=== PATIENT | female | born 1950 | race African-American/Black ===

== ENCOUNTER 2021-01-26 17:03 | Inpatient (IN) | payer MEDICARE ==
[2021-01-26] MEDS ORDERED: Acetaminophen 325 MG TAB PO PRN (17:41)
[2021-01-26] MEDS ORDERED: Sodium Chloride 0.9% 1,000 ML IV SCH (17:45)
[2021-01-26] MEDS ORDERED: Ondansetron ODT 4 MG TAB PO PRN (18:06)
[2021-01-26] MEDS ORDERED: Lorazepam 1 MG TAB PO PRN (18:06)
[2021-01-26] MEDS ORDERED: Lorazepam 2 MG/ML VIAL IM PRN (18:06)
[2021-01-26] MEDS ORDERED: Multivitamins, Adult 10 ML, Folic Acid 1 MG, Thiamine HCl 100 MG in Dextrose 5 %-0.45 %... IV SCH (18:15)
[2021-01-26] MEDS ORDERED: Electrolyte Replacement Protocol 1 EACH FS SCH (18:15)
[2021-01-26] MEDS ORDERED: Dextrose 5 %-0.45 % NaCl 1,000 ML IV SCH (18:15)
[2021-01-26 18:37] VITALS: BMI 14.4
[2021-01-26 19:42] LABS: Hemoglobin 8.9 g/dL (12.0-15.5)
[2021-01-26] MEDS ORDERED: Multivit, Therapeutic 1 TAB PO SCH (20:00)
[2021-01-26] MEDS ORDERED: Folic Acid 1 MG TAB PO SCH (20:00)
[2021-01-26] MEDS ORDERED: Thiamine HCl 200 MG/2 ML VIAL SLOW IVP SCH (20:00)
[2021-01-26] MEDS: Lorazepam 1 MG TAB PO SCH (20:07)
[2021-01-26 20:12] LABS: SARS-CoV-2 NAA Rapid Test Not Detected (NotDetected)
[2021-01-27] MEDS ORDERED: Sodium Chloride 0.45% 1,000 ML IV SCH (00:30)
[2021-01-27 04:24] LABS: ALT (SGPT) 12 U/L (8-55); AST (SGOT) 21 U/L (5-34); Albumin 2.7 g/dL (3.4-4.8); Alkaline Phosphatase 105 U/L (40-110); BUN (Urea Nitrogen) 111 mg/dL (9.8-20.1); Bilirubin, Total 0.6 mg/dL (0.2-1.2); Calc. Creatinine Clearance 8 mL/min (70-130); Calcium 7.6 mg/dL (7.8-10.44); Chloride 113 mmol/L (98-107); Globulin 3.4 g/dL (2.4-3.5); Glucose 201 mg/dL (80-115); Magnesium 1.6 mg/dL (1.6-2.6); Potassium 3.5 mmol/L (3.5-5.1); Protein, Total 6.1 g/dL (5.8-8.1); Sodium 134 mmol/L (136-145)
[2021-01-27 04:28] LABS: Carbon Dioxide Less than 8 mmol/L (23-31)
[2021-01-27 04:41] LABS: Phosphorus 10.3 mg/dL (2.3-4.7)
[2021-01-27] MEDS: Lorazepam 1 MG TAB PO SCH ×4 (04:45→17:18)
[2021-01-27] MEDS: Sodium Bicarbonate 75 MEQ in Dextrose 5% in Water 500 ML IV SCH ×4 (05:48→21:44)
[2021-01-27] MEDS: Multivit, Therapeutic 1 TAB PO SCH (08:32)
[2021-01-27] MEDS: Folic Acid 1 MG TAB PO SCH (08:32)
[2021-01-27] MEDS: Pantoprazole 40 MG VIAL IVP SCH (08:32)
[2021-01-27] MEDS: Thiamine HCl 200 MG/2 ML VIAL SLOW IVP SCH (13:34)
[2021-01-27 15:34] LABS: #Monocytes 0.3 10x3/uL (0.0-1.1); #Neutrophils 3.1 10x3/uL (1.5-8.4); %Basophils 0.3 % (0.0-2.0); %Eosinophils 0.5 % (0.0-6.0); %Lymphocytes 7.3 % (18.0-47.0); %Monocytes 7.9 % (0.0-10.0); %Neutrophils 83.5 % (40.0-75.0); Hemoglobin 8.5 g/dL (12.0-15.5); Mean Corpuscular HGB CONC 34.6 g/dL (32.0-36.0); Mean Corpuscular Hemoglobin 31.1 pg (27.0-33.0); Mean Corpuscular Volume 90.1 fl (81.6-98.3); Mean Platelet Volume 9.8 fl (7.4-10.4); Platelet Count 74 10x3/uL (150-450); Red Blood Cell (RBC) Count 2.73 10x6/uL (3.90-5.03); White Blood Cell (WBC) Count 3.7 10x3/uL (3.5-10.5)
[2021-01-27] MEDS ORDERED: Lorazepam 1 MG TAB PO PRN (18:06)
[2021-01-28] MEDS: Lorazepam 1 MG TAB PO SCH ×3 (00:13→12:46)
[2021-01-28] MEDS: Sodium Bicarbonate 75 MEQ in Dextrose 5% in Water 500 ML IV SCH ×4 (02:21→18:00)
[2021-01-28 05:53] LABS: Hemoglobin 9.9 g/dL (12.0-15.5); Mean Corpuscular HGB CONC 35.4 g/dL (32.0-36.0); Mean Corpuscular Hemoglobin 31.4 pg (27.0-33.0); Mean Corpuscular Volume 88.9 fl (81.6-98.3); Mean Platelet Volume 10.7 fl (7.4-10.4); Platelet Count 68 10x3/uL (150-450); RBC Distribution Width 20.9 % (11.5-14.5); Red Blood Cell (RBC) Count 3.15 10x6/uL (3.90-5.03); White Blood Cell (WBC) Count 4.3 10x3/uL (3.5-10.5)
[2021-01-28 06:17] LABS: Albumin 2.7 g/dL (3.4-4.8); Anion Gap 19 mmol/L (10-20); BUN (Urea Nitrogen) 100 mg/dL (9.8-20.1); BUN/Creatinine Ratio 26.53; Calc. Creatinine Clearance 9 mL/min (70-130); Calcium 7.3 mg/dL (7.8-10.44); Carbon Dioxide 20 mmol/L (23-31); Chloride 103 mmol/L (98-107); Glucose 168 mg/dL (80-115); Phosphorus 6.6 mg/dL (2.3-4.7); Potassium 2.8 mmol/L (3.5-5.1); Sodium 139 mmol/L (136-145)
[2021-01-28] MEDS ORDERED: Potassium Chloride 40 MEQ in Premix Bag 1 BAG IVPB SCH (07:30)
[2021-01-28] MEDS: Potassium Chloride 20 MEQ in Premix Bag 1 BAG IVPB SCH ×2 (08:47→08:53)
[2021-01-28] MEDS: Multivit, Therapeutic 1 TAB PO SCH (08:53)
[2021-01-28] MEDS: Folic Acid 1 MG TAB PO SCH (08:53)
[2021-01-28] MEDS: Pantoprazole 40 MG VIAL IVP SCH (08:53)
[2021-01-28] MEDS ORDERED: cloNIDine 0.1mg/24 Hour PATCH TD SCH (09:00)
[2021-01-28 09:11] LABS: Magnesium 1.3 mg/dL (1.6-2.6)
[2021-01-28] MEDS ORDERED: Magnesium Sulfate 2 GM in Sodium Chloride 0.9% 100 ML IVPB SCH (09:30)
[2021-01-28] MEDS ORDERED: Magnesium 2 GM/50 ML 2 GM in Premix Bag 1 BAG IVPB SCH (09:30)
[2021-01-28] MEDS: Thiamine HCl 200 MG/2 ML VIAL SLOW IVP SCH (14:59)
[2021-01-28] MEDS: Lorazepam 0.5 MG TAB PO SCH (18:01)
[2021-01-28] MEDS ORDERED: Lorazepam 1 MG TAB PO PRN (18:06)
[2021-01-29] MEDS: Sodium Bicarbonate 75 MEQ in Dextrose 5% in Water 500 ML IV SCH ×2 (00:50→04:53)
[2021-01-29] MEDS: Lorazepam 0.5 MG TAB PO SCH ×4 (00:54→12:54)
[2021-01-29] MEDS: WATER IV SCH ×9 (04:50→16:08)
[2021-01-29] MEDS: DEXTROSE IV SCH ×9 (04:50→16:08)
[2021-01-29] MEDS: SODIUM BICARBONATE IV SCH ×9 (04:50→16:08)
[2021-01-29] MEDS: ADMIXTURE FEE IV SCH ×9 (04:50→16:08)
[2021-01-29 05:46] LABS: Hemoglobin 9.1 g/dL (12.0-15.5); Mean Corpuscular Hemoglobin 31.4 pg (27.0-33.0); Mean Corpuscular Volume 89.7 fl (81.6-98.3); Mean Platelet Volume 11.2 fl (7.4-10.4); RBC Distribution Width 20.2 % (11.5-14.5); White Blood Cell (WBC) Count 3.7 10x3/uL (3.5-10.5)
[2021-01-29 05:47] LABS: Platelet Count 64 10x3/uL (150-450)
[2021-01-29 06:17] LABS: Albumin 2.3 g/dL (3.4-4.8); Anion Gap 17 mmol/L (10-20); BUN (Urea Nitrogen) 89 mg/dL (9.8-20.1); BUN/Creatinine Ratio 28.25; Calc. Creatinine Clearance 11 mL/min (70-130); Calcium 6.9 mg/dL (7.8-10.44); Carbon Dioxide 29 mmol/L (23-31); Chloride 95 mmol/L (98-107); Glucose 132 mg/dL (80-115); Phosphorus 4.8 mg/dL (2.3-4.7); Potassium 2.3 mmol/L (3.5-5.1); Sodium 139 mmol/L (136-145)
[2021-01-29] MEDS ORDERED: Magnesium 2 GM/50 ML 2 GM in Premix Bag 1 BAG IVPB SCH (10:00)
[2021-01-29] MEDS: Multivit, Therapeutic 1 TAB PO SCH (10:34)
[2021-01-29] MEDS: Folic Acid 1 MG TAB PO SCH (10:34)
[2021-01-29] MEDS: Pantoprazole 40 MG VIAL IVP SCH (10:34)
[2021-01-29] MEDS: Potassium Chloride 20 MEQ in Premix Bag 1 BAG IVPB SCH ×4 (10:35→18:02)
[2021-01-29] MEDS: Thiamine HCl 200 MG/2 ML VIAL SLOW IVP SCH (15:18)
[2021-01-29 15:40] LABS: Anion Gap 16 mmol/L (10-20); BUN (Urea Nitrogen) 80 mg/dL (9.8-20.1); Calc. Creatinine Clearance 12 mL/min (70-130); Calcium 6.7 mg/dL (7.8-10.44); Carbon Dioxide 33 mmol/L (23-31); Chloride 91 mmol/L (98-107); Glucose 149 mg/dL (80-115); Sodium 138 mmol/L (136-145)
[2021-01-29] MEDS: Sodium Bicarbonate 75 MEQ, Admixture Fee 1 EACH in Dextrose 5% in Water 500 ML IV SCH ×2 (15:40→22:17)
[2021-01-29] MEDS ORDERED: Metoprolol Tartrate 5 MG/5 ML VIAL IVP SCH (15:45)
[2021-01-29 16:02] LABS: Potassium 2.4 mmol/L (3.5-5.1)
[2021-01-29] MEDS ORDERED: Thiamine 100 MG TAB PO SCH (21:00)
[2021-01-29] MEDS ORDERED: Metoprolol Tartrate 5 MG/5 ML VIAL IVP PRN (23:12)
[2021-01-29] MEDS ORDERED: Electrolyte Replacement Protocol 1 EACH FS SCH (23:15)
[2021-01-29 23:48] LABS: Anion Gap 14 mmol/L (10-20); BUN (Urea Nitrogen) 75 mg/dL (9.8-20.1); Calc. Creatinine Clearance 12 mL/min (70-130); Calcium 6.7 mg/dL (7.8-10.44); Carbon Dioxide 36 mmol/L (23-31); Chloride 91 mmol/L (98-107); Glucose 151 mg/dL (80-115); Potassium 3.3 mmol/L (3.5-5.1); Sodium 138 mmol/L (136-145)
[2021-01-30] MEDS: Sodium Bicarbonate 75 MEQ, Admixture Fee 1 EACH in Dextrose 5% in Water 500 ML IV SCH ×5 (04:29→18:47)
[2021-01-30] MEDS ORDERED: metroNIDAZOLE 250 MG in Admixture Fee 2 EACH IVPB SCH (06:00)
[2021-01-30 09:13] LABS: Albumin 1.9 g/dL (3.4-4.8); BUN (Urea Nitrogen) 69 mg/dL (9.8-20.1); BUN/Creatinine Ratio 26.34; Calc. Creatinine Clearance 13 mL/min (70-130); Calcium 6.3 mg/dL (7.8-10.44); Glucose 124 mg/dL (80-115); Phosphorus 3.9 mg/dL (2.3-4.7)
[2021-01-30 09:20] LABS: Anion Gap 17 mmol/L (10-20); Carbon Dioxide 36 mmol/L (23-31); Chloride 88 mmol/L (98-107); Sodium 138 mmol/L (136-145)
[2021-01-30] MEDS: Potassium Chloride 20 MEQ in Premix Bag 1 BAG IVPB SCH ×4 (09:20→11:06)
[2021-01-30 09:30] LABS: Potassium 2.8 mmol/L (3.5-5.1)
[2021-01-30] MEDS: Vancomycin 25 MG/ML Oral SOLN PO SCH ×3 (09:30→21:53)
[2021-01-30] MEDS: Pantoprazole 40 MG VIAL IVP SCH (09:32)
[2021-01-30] MEDS: Folic Acid 1 MG TAB PO SCH (09:32)
[2021-01-30] MEDS: Multivit, Therapeutic 1 TAB PO SCH (09:32)
[2021-01-30] MEDS: Thiamine 100 MG TAB PO SCH (14:40)
[2021-01-30] MEDS ORDERED: Polyvinyl Alcohol 1.4%/Povidone 0.6% Opth Drops EA EYE PRN (16:16)
[2021-01-30 17:20] LABS: Phosphorus 3.9 mg/dL (2.3-4.7)
[2021-01-30 17:22] LABS: BUN (Urea Nitrogen) 67 mg/dL (9.8-20.1); Calc. Creatinine Clearance 13 mL/min (70-130); Calcium 6.6 mg/dL (7.8-10.44); Glucose 105 mg/dL (80-115); Magnesium 1.8 mg/dL (1.6-2.6)
[2021-01-30 17:29] LABS: Anion Gap 18 mmol/L (10-20); Carbon Dioxide 36 mmol/L (23-31); Chloride 89 mmol/L (98-107); Potassium 3.6 mmol/L (3.5-5.1); Sodium 139 mmol/L (136-145)
[2021-01-30] MEDS: Carvedilol 6.25 MG TAB PO SCH (18:32)
[2021-01-31] MEDS: Vancomycin 25 MG/ML Oral SOLN PO SCH ×4 (03:53→22:00)
[2021-01-31] MEDS: Sodium Bicarbonate 75 MEQ, Admixture Fee 1 EACH in Dextrose 5% in Water 500 ML IV SCH ×2 (03:54→10:38)
[2021-01-31] MEDS: Carvedilol 6.25 MG TAB PO SCH ×2 (09:27→17:24)
[2021-01-31] MEDS: levETIRAcetam 500 MG TAB PO SCH (09:28)
[2021-01-31] MEDS: Pantoprazole 40 MG VIAL IVP SCH (09:28)
[2021-01-31] MEDS: Ergocalciferol 1.25 MG(50,000 UNITS) CAP PO SCH (09:28)
[2021-01-31] MEDS: Folic Acid 1 MG TAB PO SCH (09:28)
[2021-01-31] MEDS: Multivit, Therapeutic 1 TAB PO SCH (09:28)
[2021-01-31] MEDS: Sodium Chloride 0.9% 1,000 ML IV SCH ×2 (09:44→15:54)
[2021-01-31] MEDS: Thiamine 100 MG TAB PO SCH (15:01)
[2021-01-31 16:30] LABS: Hemoglobin 5.5 g/dL (12.0-15.5); Mean Corpuscular HGB CONC 31.8 g/dL (32.0-36.0); Mean Corpuscular Hemoglobin 31.1 pg (27.0-33.0); Mean Corpuscular Volume 97.7 fl (81.6-98.3); Platelet Count 45 10x3/uL (150-450); RBC Distribution Width 19.1 % (11.5-14.5); Red Blood Cell (RBC) Count 1.77 10x6/uL (3.90-5.03)
[2021-01-31 16:31] LABS: Mean Platelet Volume 10.2 fl (7.4-10.4)
[2021-01-31 16:32] LABS: Albumin 1.9 g/dL (3.4-4.8); BUN (Urea Nitrogen) 59 mg/dL (9.8-20.1); BUN/Creatinine Ratio 22.26; Calc. Creatinine Clearance 13 mL/min (70-130); Calcium 6.8 mg/dL (7.8-10.44); Glucose 190 mg/dL (80-115); Phosphorus 4.1 mg/dL (2.3-4.7)
[2021-01-31 16:34] LABS: Iron 29 ug/dL (50-170); Iron Binding Capacity, Total 74 mcg/dL (265-497)
[2021-01-31 16:39] LABS: Anion Gap 16 mmol/L (10-20); Carbon Dioxide 36 mmol/L (23-31); Chloride 88 mmol/L (98-107); Potassium 3.3 mmol/L (3.5-5.1); Sodium 137 mmol/L (136-145)
[2021-01-31 18:08] LABS: Hemoglobin 5.4 g/dL (12.0-15.5)
[2021-01-31] MEDS ORDERED: Potassium Chloride 20 MEQ TAB PO SCH (20:00)
[2021-01-31] MEDS ORDERED: EPOETIN ALFA-EPBX (ESRD) 10,000 UNIT/ML VIAL SC SCH (21:00)
[2021-01-31] MEDS: Ferrous Sulfate 325 MG TAB PO SCH (21:53)
[2021-02-01] MEDS: Vancomycin 25 MG/ML Oral SOLN PO SCH ×4 (03:58→22:05)
[2021-02-01] MEDS: Sodium Chloride 0.9% 1,000 ML IV SCH (06:01)
[2021-02-01 07:21] LABS: #Eosinphils 0.1 10x3/uL (0.0-0.5); #Monocytes 0.4 10x3/uL (0.0-1.1); #Neutrophils 2.4 10x3/uL (1.5-8.4); %Basophils 0.3 % (0.0-2.0); %Eosinophils 2.7 % (0.0-6.0); %Lymphocytes 13.2 % (18.0-47.0); %Monocytes 10.5 % (0.0-10.0); %Neutrophils 72.7 % (40.0-75.0); Hemoglobin 9.4 g/dL (12.0-15.5); Mean Corpuscular HGB CONC 33.5 g/dL (32.0-36.0); Mean Corpuscular Hemoglobin 30.2 pg (27.0-33.0); Mean Corpuscular Volume 90.4 fl (81.6-98.3); Mean Platelet Volume 10.3 fl (7.4-10.4); Platelet Count 44 10x3/uL (150-450); RBC Distribution Width 18.2 % (11.5-14.5); Red Blood Cell (RBC) Count 3.11 10x6/uL (3.90-5.03); White Blood Cell (WBC) Count 3.3 10x3/uL (3.5-10.5)
[2021-02-01 07:46] LABS: Albumin 2.1 g/dL (3.4-4.8); Anion Gap 13 mmol/L (10-20); BUN (Urea Nitrogen) 55 mg/dL (9.8-20.1); Calc. Creatinine Clearance 13 mL/min (70-130); Calcium 7.4 mg/dL (7.8-10.44); Carbon Dioxide 36 mmol/L (23-31); Chloride 93 mmol/L (98-107); Glucose 85 mg/dL (80-115); Phosphorus 4.5 mg/dL (2.3-4.7); Potassium 3.9 mmol/L (3.5-5.1); Sodium 138 mmol/L (136-145)
[2021-02-01] MEDS: Ergocalciferol 1.25 MG(50,000 UNITS) CAP PO SCH (08:55)
[2021-02-01] MEDS: Ferrous Sulfate 325 MG TAB PO SCH ×2 (08:55→22:05)
[2021-02-01] MEDS: Carvedilol 6.25 MG TAB PO SCH ×2 (08:55→17:49)
[2021-02-01] MEDS: Multivit, Therapeutic 1 TAB PO SCH (08:55)
[2021-02-01] MEDS: Folic Acid 1 MG TAB PO SCH (08:55)
[2021-02-01] MEDS: levETIRAcetam 500 MG TAB PO SCH (08:55)
[2021-02-01] MEDS: Pantoprazole 40 MG VIAL IVP SCH (08:56)
[2021-02-01] MEDS: Potassium Chloride 20 MEQ TAB PO SCH ×2 (12:26→16:18)
[2021-02-01 12:46] LABS: Magnesium 1.6 mg/dL (1.6-2.6)
[2021-02-01] MEDS: Thiamine 100 MG TAB PO SCH (16:18)
[2021-02-02] MEDS: Vancomycin 25 MG/ML Oral SOLN PO SCH ×4 (02:58→20:31)
[2021-02-02] MEDS: Carvedilol 6.25 MG TAB PO SCH ×2 (09:05→19:11)
[2021-02-02] MEDS: Pantoprazole 40 MG VIAL IVP SCH (09:05)
[2021-02-02] MEDS: Ferrous Sulfate 325 MG TAB PO SCH ×2 (09:05→20:31)
[2021-02-02] MEDS: NIFEdipine XL 60 MG TAB PO SCH (09:05)
[2021-02-02] MEDS: Folic Acid 1 MG TAB PO SCH (09:05)
[2021-02-02] MEDS: Ergocalciferol 1.25 MG(50,000 UNITS) CAP PO SCH (09:05)
[2021-02-02] MEDS: Multivit, Therapeutic 1 TAB PO SCH (09:05)
[2021-02-02] MEDS: levETIRAcetam 500 MG TAB PO SCH (09:05)
[2021-02-02 10:29] LABS: Hemoglobin 9.8 g/dL (12.0-15.5); Mean Corpuscular HGB CONC 31.7 g/dL (32.0-36.0); Mean Corpuscular Hemoglobin 30.9 pg (27.0-33.0); Mean Corpuscular Volume 97.5 fl (81.6-98.3); Mean Platelet Volume 10.8 fl (7.4-10.4); Platelet Count 57 10x3/uL (150-450); RBC Distribution Width 18.1 % (11.5-14.5); Red Blood Cell (RBC) Count 3.17 10x6/uL (3.90-5.03); White Blood Cell (WBC) Count 3.3 10x3/uL (3.5-10.5)
[2021-02-02 10:35] LABS: Albumin 2.2 g/dL (3.4-4.8); Anion Gap 14 mmol/L (10-20); BUN (Urea Nitrogen) 51 mg/dL (9.8-20.1); BUN/Creatinine Ratio 17.47; Calc. Creatinine Clearance 12 mL/min (70-130); Calcium 8.2 mg/dL (7.8-10.44); Carbon Dioxide 26 mmol/L (23-31); Chloride 102 mmol/L (98-107); Glucose 143 mg/dL (80-115); Phosphorus 4.2 mg/dL (2.3-4.7); Potassium 5.1 mmol/L (3.5-5.1); Sodium 137 mmol/L (136-145)
[2021-02-02] MEDS ORDERED: Megestrol Acetate 400 MG/10 ML UDCUP PO SCH (12:15)
[2021-02-02] MEDS: Thiamine 100 MG TAB PO SCH (13:32)
[2021-02-03] MEDS: Vancomycin 25 MG/ML Oral SOLN PO SCH ×5 (03:28→22:59)
[2021-02-03 07:04] LABS: Anion Gap 14 mmol/L (10-20); BUN (Urea Nitrogen) 49 mg/dL (9.8-20.1); Calc. Creatinine Clearance 12 mL/min (70-130); Calcium 8.1 mg/dL (7.8-10.44); Carbon Dioxide 24 mmol/L (23-31); Chloride 108 mmol/L (98-107); Glucose 123 mg/dL (80-115); Potassium 5.6 mmol/L (3.5-5.1); Sodium 140 mmol/L (136-145)
[2021-02-03] MEDS: Carvedilol 6.25 MG TAB PO SCH ×3 (11:12→15:54)
[2021-02-03] MEDS: levETIRAcetam 500 MG TAB PO SCH (11:12)
[2021-02-03] MEDS: Multivit, Therapeutic 1 TAB PO SCH (11:12)
[2021-02-03] MEDS: Ferrous Sulfate 325 MG TAB PO SCH ×2 (11:13→22:57)
[2021-02-03] MEDS: NIFEdipine XL 60 MG TAB PO SCH (11:13)
[2021-02-03] MEDS: Ergocalciferol 1.25 MG(50,000 UNITS) CAP PO SCH (11:13)
[2021-02-03] MEDS: Folic Acid 1 MG TAB PO SCH (11:13)
[2021-02-03] MEDS: Megestrol Acetate 400 MG/10 ML UDCUP PO SCH (11:13)
[2021-02-03] MEDS: Pantoprazole 40 MG VIAL IVP SCH (11:14)
[2021-02-03] MEDS: NIFEdipine XL 30 MG TAB PO SCH (11:35)
[2021-02-03] MEDS: Thiamine 100 MG TAB PO SCH (12:20)
[2021-02-03 14:59] LABS: SARS-CoV-2 PCR by NAA DETECTED (NotDetected)
[2021-02-03 16:58] LABS: SARS-CoV-2 IgG Spike Ab Interp Reactive (NonReactive); SARS-CoV-2 IgG Spike Conc/Indx 439.1 AU/mL (0.00-50.0)
[2021-02-03] MEDS ORDERED: Dexamethasone 10 MG/ML VIAL SLOW IVP SCH (21:00)
[2021-02-04] MEDS: Vancomycin 25 MG/ML Oral SOLN PO SCH ×4 (04:32→23:23)
[2021-02-04] MEDS: Megestrol Acetate 400 MG/10 ML UDCUP PO SCH (07:47)
[2021-02-04] MEDS: Multivit, Therapeutic 1 TAB PO SCH (07:48)
[2021-02-04] MEDS: Carvedilol 6.25 MG TAB PO SCH ×2 (07:48→17:04)
[2021-02-04] MEDS: Ergocalciferol 1.25 MG(50,000 UNITS) CAP PO SCH (07:48)
[2021-02-04] MEDS: Pantoprazole 40 MG VIAL IVP SCH (07:48)
[2021-02-04] MEDS: Folic Acid 1 MG TAB PO SCH (07:48)
[2021-02-04] MEDS: NIFEdipine XL 60 MG TAB PO SCH (07:48)
[2021-02-04 07:49] LABS: Albumin 2.3 g/dL (3.4-4.8); Anion Gap 14 mmol/L (10-20); BUN (Urea Nitrogen) 56 mg/dL (9.8-20.1); BUN/Creatinine Ratio 16.82; Calc. Creatinine Clearance 10 mL/min (70-130); Carbon Dioxide 22 mmol/L (23-31); Chloride 109 mmol/L (98-107); Glucose 180 mg/dL (80-115); Phosphorus 2.5 mg/dL (2.3-4.7); Potassium 6.1 mmol/L (3.5-5.1); Sodium 139 mmol/L (136-145)
[2021-02-04] MEDS: levETIRAcetam 500 MG TAB PO SCH (07:49)
[2021-02-04] MEDS: Ferrous Sulfate 325 MG TAB PO SCH ×2 (07:49→20:33)
[2021-02-04] MEDS: Aspirin 81 mg Enteric Coated Tablet PO SCH (07:49)
[2021-02-04] MEDS: Zinc Sulfate 220 MG CAP PO SCH (07:49)
[2021-02-04] MEDS ORDERED: LOKELMA 10 GM PACKET PO SCH (08:45)
[2021-02-04] MEDS ORDERED: Calcium Gluconate 4.6 MEQ in Sodium Chloride 0.9% 100 ML IVPB SCH (08:50)
[2021-02-04] MEDS ORDERED: Albuterol Sulfate 2.5 mg/3 ml Neb NEB SCH (09:00)
[2021-02-04] MEDS ORDERED: NIFEdipine XL 90 MG TAB PO SCH (09:00)
[2021-02-04] MEDS ORDERED: Insulin Regular 300 UNITS/3 ML VIAL IVP SCH (09:00)
[2021-02-04] MEDS ORDERED: Sodium Bicarbonate Tab 325 MG TAB PO SCH (09:00)
[2021-02-04] MEDS ORDERED: Dextrose 50% Abboject 50 ML SYRINGE SLOW IVP SCH (09:00)
[2021-02-04] MEDS ORDERED: Calcium Gluc 4.6 MEQ/10 ML (100 MG/ML) ONE (11:31)
[2021-02-04] MEDS: Thiamine 100 MG TAB PO SCH (11:47)
[2021-02-04] MEDS: Dexamethasone 20 MG/5 ML VIAL SLOW IVP SCH ×2 (11:47→20:33)
[2021-02-04 16:16] LABS: Anion Gap 14 mmol/L (10-20); BUN (Urea Nitrogen) 57 mg/dL (9.8-20.1); Calc. Creatinine Clearance 10 mL/min (70-130); Calcium 8.3 mg/dL (7.8-10.44); Carbon Dioxide 22 mmol/L (23-31); Chloride 106 mmol/L (98-107); Glucose 202 mg/dL (80-115); Potassium 5.4 mmol/L (3.5-5.1); Sodium 137 mmol/L (136-145)
[2021-02-04] MEDS: Sodium Bicarbonate Tab 325 MG TAB PO SCH ×2 (17:03→20:33)
[2021-02-04] MEDS: NIFEdipine XL 30 MG TAB PO SCH (20:11)
[2021-02-05] MEDS: Lorazepam 0.5 MG TAB PO PRN (01:56)
[2021-02-05] MEDS ORDERED: Nicotine 21 MG PATCH TD SCH (02:30)
[2021-02-05] MEDS: Vancomycin 25 MG/ML Oral SOLN PO SCH ×4 (05:08→21:51)
[2021-02-05] MEDS: Carvedilol 6.25 MG TAB PO SCH (06:48)
[2021-02-05 07:22] LABS: Albumin 2.2 g/dL (3.4-4.8); Anion Gap 14 mmol/L (10-20); BUN (Urea Nitrogen) 62 mg/dL (9.8-20.1); Calc. Creatinine Clearance 10 mL/min (70-130); Carbon Dioxide 22 mmol/L (23-31); Chloride 106 mmol/L (98-107); Glucose 227 mg/dL (80-115); Phosphorus 1.9 mg/dL (2.3-4.7); Potassium 4.9 mmol/L (3.5-5.1); Sodium 137 mmol/L (136-145)
[2021-02-05] MEDS: Zinc Sulfate 220 MG CAP PO SCH (08:44)
[2021-02-05] MEDS: Megestrol Acetate 400 MG/10 ML UDCUP PO SCH (08:44)
[2021-02-05] MEDS: Sodium Bicarbonate Tab 325 MG TAB PO SCH ×3 (08:47→21:49)
[2021-02-05] MEDS: Dexamethasone 20 MG/5 ML VIAL SLOW IVP SCH ×2 (08:48→21:47)
[2021-02-05] MEDS: Ferrous Sulfate 325 MG TAB PO SCH ×2 (08:49→21:48)
[2021-02-05] MEDS: Ergocalciferol 1.25 MG(50,000 UNITS) CAP PO SCH (08:49)
[2021-02-05] MEDS: Pantoprazole 40 MG VIAL IVP SCH (08:49)
[2021-02-05] MEDS: levETIRAcetam 500 MG TAB PO SCH (08:50)
[2021-02-05] MEDS: Aspirin 81 mg Enteric Coated Tablet PO SCH (08:50)
[2021-02-05] MEDS: Multivit, Therapeutic 1 TAB PO SCH (08:50)
[2021-02-05] MEDS: Folic Acid 1 MG TAB PO SCH (08:50)
[2021-02-05] MEDS ORDERED: NIFEdipine XL 90 MG TAB PO SCH (09:00)
[2021-02-05] MEDS ORDERED: hydrALAZINE 20 MG/ML VIAL SLOW IVP PRN (11:30)
[2021-02-05] MEDS: Thiamine 100 MG TAB PO SCH (16:59)
[2021-02-05] MEDS ORDERED: Carvedilol 12.5 MG TAB PO SCH (17:00)
[2021-02-06] MEDS ORDERED: Nicotine 21 MG PATCH TD SCH ×3 (01:15→21:00)
[2021-02-06] MEDS: Lorazepam 0.5 MG TAB PO PRN (01:16)
[2021-02-06] MEDS: Amlodipine 5 MG TAB PO PRN ×2 (02:23→11:10)
[2021-02-06] MEDS: Vancomycin 25 MG/ML Oral SOLN PO SCH ×3 (04:35→17:13)
[2021-02-06 07:57] LABS: Hemoglobin 9.1 g/dL (12.0-15.5); Mean Corpuscular HGB CONC 32.7 g/dL (32.0-36.0); Mean Corpuscular Hemoglobin 30.8 pg (27.0-33.0); Mean Corpuscular Volume 94.2 fl (81.6-98.3); Mean Platelet Volume 10.2 fl (7.4-10.4); Platelet Count 119 10x3/uL (150-450); RBC Distribution Width 17.4 % (11.5-14.5); Red Blood Cell (RBC) Count 2.95 10x6/uL (3.90-5.03); White Blood Cell (WBC) Count 3.8 10x3/uL (3.5-10.5)
[2021-02-06 07:59] LABS: Albumin 2.2 g/dL (3.4-4.8); Anion Gap 14 mmol/L (10-20); BUN (Urea Nitrogen) 71 mg/dL (9.8-20.1); BUN/Creatinine Ratio 20.11; Calc. Creatinine Clearance 10 mL/min (70-130); Calcium 8.2 mg/dL (7.8-10.44); Carbon Dioxide 21 mmol/L (23-31); Chloride 106 mmol/L (98-107); Glucose 235 mg/dL (80-115); Phosphorus 1.3 mg/dL (2.3-4.7); Potassium 5.1 mmol/L (3.5-5.1); Sodium 136 mmol/L (136-145)
[2021-02-06] MEDS ORDERED: Potassium Phosphate 15 MMOL in Sodium Chloride 0.9% 100 ML IVPB SCH (08:15)
[2021-02-06] MEDS ORDERED: Sodium Phosphate 15 MMOL in Sodium Chloride 0.9% 250 ML 250 ML IVPB SCH (08:30)
[2021-02-06] MEDS ORDERED: NIFEdipine XL 60 MG TAB PO SCH (09:00)
[2021-02-06] MEDS ORDERED: Labetalol 100 MG TAB PO SCH ×2 (09:00→15:45)
[2021-02-06] MEDS: Aspirin 81 mg Enteric Coated Tablet PO SCH (11:08)
[2021-02-06] MEDS: Ergocalciferol 1.25 MG(50,000 UNITS) CAP PO SCH (11:08)
[2021-02-06] MEDS: Folic Acid 1 MG TAB PO SCH (11:08)
[2021-02-06] MEDS: Ferrous Sulfate 325 MG TAB PO SCH (11:08)
[2021-02-06] MEDS: Dexamethasone 20 MG/5 ML VIAL SLOW IVP SCH (11:08)
[2021-02-06] MEDS: levETIRAcetam 500 MG TAB PO SCH (11:09)
[2021-02-06] MEDS: Multivit, Therapeutic 1 TAB PO SCH (11:09)
[2021-02-06] MEDS: Sodium Bicarbonate Tab 325 MG TAB PO SCH ×2 (11:09→17:13)
[2021-02-06] MEDS: Zinc Sulfate 220 MG CAP PO SCH (11:09)
[2021-02-06] MEDS: Megestrol Acetate 400 MG/10 ML UDCUP PO SCH (11:09)
[2021-02-06] MEDS: Pantoprazole 40 MG VIAL IVP SCH (11:09)
[2021-02-06 17:00] VITALS: BP 127/76; TEMP 98.2
[2021-02-06] MEDS: Thiamine 100 MG TAB PO SCH (17:13)
[2021-02-06] MEDS ORDERED: Labetalol HCl 200 MG TAB PO SCH (21:00)
[2021-02-07 00:36] LABS: QuantiFERON-TB Gold Plus Negative (Negative)
== END 2021-02-06 19:39 | disposition home or self-care (01) | DRG 896 ==
LOC: CSHIMCU 17:03 → CSHTELE 01-28 20:47
PROVIDERS: ADMIT Internal Medicine; ATTEND Hospitalist
PROC: HZ2ZZZZ Detoxification Services for Substance Abuse Treatment (ICD-10-PCS; 2021-01-26)
PROC: 30233N1 Transfusion of Nonautologous Red Blood Cells into Peripheral Vein, Percutaneous Approach (ICD-10-PCS; principal; 2021-01-31)
PROC: 8E0ZXY6 Isolation (ICD-10-PCS; 2021-02-02)
DX: F10.10 Alcohol abuse, uncomplicated (principal); E43 Unspecified severe protein-calorie malnutrition; G93.41 Metabolic encephalopathy; K85.90 Acute pancreatitis without necrosis or infection, unspecified; U07.1 COVID-19; J12.82 Pneumonia due to coronavirus disease 2019; N18.4 Chronic kidney disease, stage 4 (severe); Z68.1 Body mass index [BMI] 19.9 or less, adult; D61.818 Other pancytopenia; I42.9 Cardiomyopathy, unspecified; N17.9 Acute kidney failure, unspecified; E87.2 Acidosis; A04.72 Enterocolitis due to Clostridium difficile, not specified as recurrent; E87.3 Alkalosis; I12.9 Hypertensive chronic kidney disease with stage 1 through stage 4 chronic kidney disease, or unspecified chronic kidney disease; D63.1 Anemia in chronic kidney disease; G40.909 Epilepsy, unspecified, not intractable, without status epilepticus; E86.0 Dehydration; E86.9 Volume depletion, unspecified; E87.6 Hypokalemia; E83.39 Other disorders of phosphorus metabolism; Z96.642 Presence of left artificial hip joint; E87.5 Hyperkalemia; Z91.041 Radiographic dye allergy status; Z79.899 Other long term (current) drug therapy
CPT/HCPCS: 36415; 36416; 36430; 71045; 80048; 80053; 80069; 82728; 83010; 83540; 83550; 83735; 84100; 85025; 85027; 86480; 86769; 86850; 86900; 86901; 87045; 87046; 87324; 87427; 87449; 87493; 93005; 93010; 94760; C9113; J0360; J0610; J1100; J3411; J3475; J3480; J3490; J7042; J7050; J7070; P9016; Q0162; Q5105; U0002; U0003; U0005